=== PATIENT | female | born 1995 | race Caucasian/White ===

== ENCOUNTER 2022-11-24 11:08 | Outpatient (CLI) | payer OTHER | END 2022-11-24 13:02 | disposition home or self-care (01) | LOC: PRENATAL 11:08 | PROVIDERS: ATTEND Obstetrics & Gynecology Maternal & Fetal Medicine | DX: O35.3XX0 Maternal care for (suspected) damage to fetus from viral disease in mother, not applicable or unspecified (principal); O44.00 Complete placenta previa NOS or without hemorrhage, unspecified trimester; Z3A.19 19 weeks gestation of pregnancy ==

== ENCOUNTER 2023-01-12 13:32 | Outpatient (CLI) | payer OTHER | END 2023-01-12 16:21 | disposition home or self-care (01) | LOC: PRENATAL 13:32 | PROVIDERS: ATTEND Obstetrics & Gynecology Maternal & Fetal Medicine | DX: O26.849 Uterine size-date discrepancy, unspecified trimester (principal); Z3A.26 26 weeks gestation of pregnancy ==

== ENCOUNTER 2023-02-13 21:21 | Inpatient (IN) | payer OTHER ==
[~2023-02-13] VITALS: Ht 165.1 cm; Wt 68.0 kg
[2023-02-13 22:26] LABS: PH,URINE 5.5 (5.0-8.0); URINE APPEARANCE Clear; URINE BILIRRUBIN Negative (NEGATIVE); URINE BLOOD Negative; URINE COLOR Yellow; URINE LEUKOCYTE Moderate; URINE NITRATE Negative; URINE PROTEIN Trace (NEGATIVE)
[2023-02-13 22:27] LABS: URINE BACTERIA 4487.9 uL (0.0-1933); URINE EPITHELIAL CELLS 33.2 uL (0.0-38.8); URINE RBC 4.4 uL (0.0-20.8); URINE WBC 257.2 uL (0.0-23.2)
[2023-02-13 22:28] LABS: HEMATOCRIT 24.7 % (36.0-45.00); MEAN CELL VOLUME 91.7 fL (80.00-100.00); MEAN CORPUSCULAR HEMOGLOBIN 31.5 pg (27.00-32.0); MEAN CORPUSCULAR HGB CONC 34.5 g/dl (32.0-36.0); PLATELET COUNT 137 K/uL (150-450); RED BLOOD COUNT 2.69 M/uL (4.00-6.00); RED CELL DISTRIBUTION WIDTH 13.2 % (11.5-14.5)
[2023-02-13 22:29] LABS: HEMOGLOBIN 8.5 g/dL (12.0-15.00)
[2023-02-13 22:39] LABS: PARTIAL THROMBOPLASTIN TIME 28.4 SECONDS (22.0-34.0); PROTHROMBIN TIME 10.5 SECONDS (9.0-11.5)
[2023-02-13 22:42] LABS: URINE GLUCOSE 100 MG/DL (NEGATIVE)
[2023-02-13 22:43] LABS: URINE MUCUS MODERATE
[2023-02-13 22:45] LABS: ALBUMIN 2.6 gm/dL (3.4-5.0); BILIRUBIN TOTAL 0.45 mg/dL (0.3-1.2); CALCIUM 8.4 mg/dL (8.5-10.1); CREATININE SERUM 0.41 mg/dL (0.55-1.02); GFR 187.52; GLOBULINA 3.1 G/DL (2.4-3.5); POTASSIUM 4.26 mEq/L (3.5-5.1); TOTAL PROTEIN 5.7 gm/dL (6.4-8.2)
[2023-02-13] MEDS ORDERED: PRENATAL TABLE1 EAC1 PO (22:45)
[2023-02-15 07:25] LABS: MEAN CELL VOLUME 91.7 fL (80.00-100.00); PLATELET COUNT 139 K/uL (150-450); RED BLOOD COUNT 2.48 M/uL (4.00-6.00); RED CELL DISTRIBUTION WIDTH 13.8 % (11.5-14.5)
[2023-02-15 07:34] LABS: HEMOGLOBIN 7.7 g/dL (12.0-15.00)
[2023-02-15 07:35] LABS: HEMATOCRIT 22.7 % (36.0-45.00)
[2023-02-17 09:10] LABS: HEMATOCRIT 25.2 % (36.0-45.00); MEAN CELL VOLUME 91.9 fL (80.00-100.00); PLATELET COUNT 160 K/uL (150-450); RED BLOOD COUNT 2.74 M/uL (4.00-6.00); RED CELL DISTRIBUTION WIDTH 13.3 % (11.5-14.5)
[2023-02-17 09:46] LABS: MEAN CORPUSCULAR HEMOGLOBIN 31.3 pg (27.00-32.0)
[2023-02-17 09:47] LABS: HEMOGLOBIN 8.6 g/dL (12.0-15.00)
== END 2023-02-17 12:19 | disposition home or self-care (01) | DRG 832 ==
LOC: LDR 21:21 → OB/GYN 02-15 21:32
PROVIDERS: Internal Medicine Hematology & Oncology; ADMIT Obstetrics & Gynecology; ATTEND Obstetrics & Gynecology
PROC: 4A1HXCZ Monitoring of Products of Conception, Cardiac Rate, External Approach (ICD-10-PCS; principal; 2023-02-13)
PROC: BY4FZZZ Ultrasonography of Third Trimester, Single Fetus (ICD-10-PCS; 2023-02-14)
DX: O99.013 Anemia complicating pregnancy, third trimester (principal); O23.43 Unspecified infection of urinary tract in pregnancy, third trimester; D64.9 Anemia, unspecified; O26.843 Uterine size-date discrepancy, third trimester; O36.8130 Decreased fetal movements, third trimester, not applicable or unspecified; Z3A.30 30 weeks gestation of pregnancy; Z20.822 Contact with and (suspected) exposure to COVID-19

== ENCOUNTER 2023-03-08 10:08 | Outpatient (CLI) | payer OTHER ==
[~2023-03-08 10:08] MED LIST: PRENATAL TABLE1 EAC1 PO
== END 2023-03-08 10:10 | disposition home or self-care (01) ==
LOC: PRENATAL 10:08
PROVIDERS: ATTEND Obstetrics & Gynecology Maternal & Fetal Medicine
DX: O26.849 Uterine size-date discrepancy, unspecified trimester (principal); O36.8199 Decreased fetal movements, unspecified trimester, other fetus; Z3A.33 33 weeks gestation of pregnancy

== ENCOUNTER 2023-04-04 13:34 | Inpatient (IN) | payer OTHER ==
[~2023-04-04] VITALS: Ht 165.1 cm; Wt 70.3 kg
[2023-04-04 15:36] LABS: PH,URINE 6.5 (5.0-8.0); URINE APPEARANCE Clear; URINE BILIRRUBIN Negative (NEGATIVE); URINE BLOOD Trace; URINE COLOR Yellow; URINE GLUCOSE Negative (NEGATIVE); URINE LEUKOCYTE Trace; URINE NITRATE Negative; URINE PROTEIN Trace (NEGATIVE)
[2023-04-04 15:40] LABS: URINE BACTERIA 696.7 uL (0.0-1933); URINE RBC 3.3 uL (0.0-20.8); URINE WBC 19.1 uL (0.0-23.2)
[2023-04-04 15:45] LABS: HEMATOCRIT 35.7 % (36.0-45.00); HEMOGLOBIN 11.7 g/dL (12.0-15.00); MEAN CELL VOLUME 93.1 fL (80.00-100.00); MEAN CORPUSCULAR HEMOGLOBIN 30.4 pg (27.00-32.0); MEAN CORPUSCULAR HGB CONC 32.7 g/dl (32.0-36.0); PLATELET COUNT 209 K/uL (150-450); RED BLOOD COUNT 3.83 M/uL (4.00-6.00); RED CELL DISTRIBUTION WIDTH 14.7 % (11.5-14.5)
[2023-04-04 22:20] LABS: HEMATOCRIT 35.5 % (36.0-45.00); HEMOGLOBIN 11.6 g/dL (12.0-15.00); MEAN CELL VOLUME 90.9 fL (80.00-100.00); MEAN CORPUSCULAR HEMOGLOBIN 29.8 pg (27.00-32.0); MEAN CORPUSCULAR HGB CONC 32.8 g/dl (32.0-36.0); PLATELET COUNT 238 K/uL (150-450); RED CELL DISTRIBUTION WIDTH 15.2 % (11.5-14.5)
== END 2023-04-06 14:53 | disposition home or self-care (01) | DRG 807 ==
LOC: LDR 13:34 → OB/GYN 17:22
PROVIDERS: ADMIT Obstetrics & Gynecology; ATTEND Obstetrics & Gynecology
PROC: 10E0XZZ Delivery of Products of Conception, External Approach (ICD-10-PCS; principal; 2023-04-04)
PROC: 4A1HXCZ Monitoring of Products of Conception, Cardiac Rate, External Approach (ICD-10-PCS; 2023-04-04)
DX: O80 Encounter for full-term uncomplicated delivery (principal); Z37.0 Single live birth; Z3A.37 37 weeks gestation of pregnancy; Z20.822 Contact with and (suspected) exposure to COVID-19